=== PATIENT | male | born 1990 | race Asian ===

== ENCOUNTER 2022-09-02 23:55 | Emergency (ER) | payer BC ==
[~2022-09-02] VITALS: Ht 175.3 cm; Wt 90.7 kg
[2022-09-03 00:10] VITALS: BP_SYST 136
[2022-09-03] MEDS ORDERED: IBUP-1971 PO (01:46)
[2022-09-03 02:09] VITALS: BP_SYST 127
== END 2022-09-03 02:07 | disposition home or self-care (01) ==
LOC: SED 23:55
DX: R07.89 Other chest pain (principal)
CPT/HCPCS: 93005; 99283